=== PATIENT | female | born 1995 | race Caucasian/White ===

== ENCOUNTER 2018-01-13 16:33 | Emergency (ER) | payer BC ==
[2018-01-13 16:48] VITALS: BP 112/70
--- NOTE | 2018-01-13 17:18 | UC ---
Hand/Wrist HPI - HPI Summary HPI Summary: repeatative tress to left wrist . Has increasing left wrist pain with no recent trauma. remote hx of fracture - History Of Current Complaint Chief Complaint: UCUpperExtremity Stated Complaint: WRIST PAIN Time Seen by Provider: 01/13/18 17:00 Hx Obtained From: Patient Hx Last Menstrual Period: control ?: No Mechanism Of Injury: no known Onset/Duration: Gradual Onset, Lasting Weeks, Still Present Pain Intensity: 7 Pain Scale Used: 0-10 Numeric Character Of Pain: Aching, Throbbing Aggravating Factor(s): Movement, Lifting Alleviating Factor(s): Nothing Associated Signs And Symptoms: Positive: Negative Related History: Dominant Hand Right - Allergies/Home Medications Allergies/Adverse Reactions: Allergies Allergy/AdvReac Type Severity Reaction Status Date / Time amoxicillin Allergy Hives Verified 01/13/18 16:48 PMH/Surg Hx/FS Hx/Imm Hx Previously Healthy: Yes - Surgical History Surgical History: None - Social History Occupation: Employed Full-time Lives: With Family Alcohol Use: Weekly Substance Use Type: None Smoking Status (MU): Never Smoked Tobacco Review of Systems Constitutional: Negative Skin: Negative Eyes: Negative ENT: Negative Respiratory: Negative Cardiovascular: Negative Gastrointestinal: Negative Genitourinary: Negative Motor: Negative Neurovascular: Negative Musculoskeletal: Arthralgia - left wrist pain Neurological: Negative Psychological: Negative Is Patient Immunocompromised?: No All Other Systems Reviewed And Are Negative: Yes Physical Exam Triage Information Reviewed: Yes Appearance: Well-Appearing, No Pain Distress, Well-Nourished Vital Signs: Initial Vital Signs Temp 97.3 F 01/13/18 16:42 Pulse 58 01/13/18 16:42 Resp 16 01/13/18 16:42 BP 112/70 01/13/18 16:42 Pulse Ox 100 01/13/18 16:42 Vital Signs Reviewed: Yes Eye Exam: Normal Eyes: Positive: Conjunctiva Clear ENT Exam: Normal ENT: Positive: Normal ENT inspection, Hearing grossly normal. Negative: Trismus , Muffled voice, Hoarse voice Dental Exam: Normal Neck exam: Normal Neck: Positive: 1 Respiratory Exam: Normal Respiratory: Positive: Chest non-tender, No respiratory distress, No accessory muscle use Cardiovascular Exam: Normal Cardiovascular: Positive: RRR, Pulses Normal, Brisk Capillary Refill Musculoskeletal Exam: Normal Musculoskeletal: Positive: Strength Intact, ROM Intact, No Edema Neurological Exam: Normal Neurological: Positive: Alert, Muscle Tone Normal Psychological Exam: Normal Skin Exam: Normal Diagnostics - Radiology No standard instances Xray Interpretation: No Acute Changes Radiology Interpretation Completed By: ED Physician, Radiologist - Patient Name : MICHA FLORES Medical Record#: [id number] Ordering Physician: Makenna Li NP Acct.#: [id number] : 1995 Age: 23 Sex: F Location: [facility] Exam Date: 01/13/181721 ADM Status: REG ER Order Information: WRIST LEFT 3+ VWS Accession Number: [id number] CPT: 81222 INDICATION: LEFT wrist pain and swelling; repetitive stress increasing for 2 months. Swelling. Pain at the distal ulna. Remote fracture. COMPARISON: March 15, 2007 TECHNIQUE: AP, lateral, and oblique views LEFT wrist. REPORT AND IMPRESSION: #. Chronic ulnar styloid fracture with nonunion. Negative for acute fracture. #. Normal articular alignment aside from mild ulnar plus variance which results in increased stress on the triangular fibrocartilage. #. Mild soft tissue swelling over the ulnar aspect. <Electronically signed by Jose Bolton MD in OV> 01/13/181756 Dictated By: Jose Bolton MD Dictated Date/Time: 01/13/181756 Transcribed Date/Time: 01/13/181754 Copy to: CC:Makenna Li NP; Ez Lyon MD; No Primary Care Phys,[facility] Imaging - [facility] [address] [address] ph ) ph ([phone]) ph ([phone]) This report is only to be considered final once signed by the Provider(s) as displayed in the "<Electronically Signed by >" field (s). Absence of a signature indicates the report is in a draft status and still needs to be finalized. In the event this document was created by someone other than the signing Provider, the individual initiating the document will be listed in the "Entered by:" or "Dictated by:" rubi. 1 of 1 Hand/Wrist Course/Dx - Course Course Of Treatment: ibuprofen, cock up splint rice, follow with pcp/ortho prn - Differential Dx/Diagnosis Provider Diagnoses: left wrist pain Discharge - Sign-Out/Discharge Documenting (check all that apply): Patient Departure - Discharge Plan Condition: Stable Disposition: HOME Prescriptions: Ibuprofen TAB* [Motrin TAB* 600 MG] 600 mg PO Q6H PRN #30 tab PRN Reason: pain Patient Education Materials: Arthralgia (ED), Tendinitis (ED), Swollen Joint ( ED) Referrals: Vidal Wang MD [Medical Doctor] - 1 Week Urmila Dove MD [Medical Doctor] - If Needed - Billing Disposition and Condition Condition: STABLE Disposition: Home
--- NOTE | 2018-01-13 18:00 | RAD ---
INDICATION: LEFT wrist pain and swelling; repetitive stress increasing for 2 months. Swelling. Pain at the distal ulna. Remote fracture. COMPARISON: March 15, 2007 TECHNIQUE: AP, lateral, and oblique views LEFT wrist. REPORT AND IMPRESSION: #. Chronic ulnar styloid fracture with nonunion. Negative for acute fracture. #. Normal articular alignment aside from mild ulnar plus variance which results in increased stress on the triangular fibrocartilage. #. Mild soft tissue swelling over the ulnar aspect.
== END 2018-01-13 18:34 | disposition home or self-care (01) ==
LOC: UCEAST 16:33
DX: M25.532 Pain in left wrist (principal); S52.615K Nondisplaced fracture of left ulna styloid process, subsequent encounter for closed fracture with nonunion; X58.XXXD Exposure to other specified factors, subsequent encounter; Z88.0 Allergy status to penicillin
CPT/HCPCS: 99213; G0463